=== PATIENT | male | born 1960 | race Caucasian/White ===

== ENCOUNTER 2018-01-09 10:16 | Day surgery (SDC) | payer BC, OTHER ==
[~2018-01-09 10:16] MED LIST: LIDOCAINE 1% MDV 20ML VIAL As Ordered; LIDOCAINE 2% INJ 100 MG/5 ML SDV (FOR ANES.) As Ordered; PROPOFOL 200 MG/20 ML VIAL As Ordered
[2018-01-09] MEDS ORDERED: NS 1,000 ML IV (11:00)
== END 2018-01-09 12:28 | disposition home or self-care (01) ==
LOC: M OPP 10:16
DX: Z12.11 Encounter for screening for malignant neoplasm of colon (principal); K64.8 Other hemorrhoids; Z80.0 Family history of malignant neoplasm of digestive organs; Z88.8 Allergy status to other drugs, medicaments and biological substances
CPT/HCPCS: 45378

== ENCOUNTER → 2020-01-17 | Outpatient (CLI) | payer BC, OTHER ==
--- NOTE | 2020-01-17 08:28 | REP ---
Abdominal aortic sonography: History: Pulsatile abdominal aorta on physical exam in the inferior epigastrium . Findings: Scanning through the retroperitoneum demonstrates that the abdominal aorta is normal in caliber at the level of the diaphragmatic hiatus measuring 2.8 x 2.9 cm in AP by transverse dimension respectively. The measurements of the aorta at the level of the renal artery origins is 2.6 x 2.1 cm in AP by transverse dimension diameter respectively. The distal aorta tapers to 1.7 x 1.8 cm AP by transverse dimension. The right and left common iliac arteries are normal measuring 1.0 cm in AP dimension bilaterally . No aneurysm is seen. No periaortic disease is observed. Impression: Negative abdominal aortic sonography. Electronically Signed by Dion Scherer MD 01/17/2020 08:20 A
== END ==
LOC: M RAD 06:25
PROVIDERS: ATTEND Family Medicine
DX: R19.00 Intra-abdominal and pelvic swelling, mass and lump, unspecified site (principal)

== ENCOUNTER → 2020-02-01 | Outpatient (CLI) | payer BC, OTHER ==
[2020-02-01 07:19] LABS: HEMOGLOBIN 13.9 g/dl (13.5-17.5); MEAN CORPUSCULAR HEMOGLOBIN 29.4 pg (27.0-33.0); MEAN CORPUSCULAR HGB CONC 33.1 g/dl (32.0-36.5); PLATELET COUNT, AUTOMATED 208 10^3/uL (150-450); RED BLOOD COUNT 4.72 10^6/uL (4.30-6.10); WHITE BLOOD COUNT 6.5 10^3/uL (4.0-10.0)
[2020-02-01 07:54] LABS: ALBUMIN 3.6 GM/DL (3.2-5.2); ALT/SGPT 28 U/L (12-78); BILIRUBIN,TOTAL 0.4 MG/DL (0.2-1.0); BLOOD UREA NITROGEN 21 MG/DL (7-18); CALCIUM LEVEL 8.9 MG/DL (8.5-10.1); CARBON DIOXIDE LEVEL 29 MEQ/L (21-32); CHLORIDE LEVEL 110 MEQ/L (98-107); CHOLESTEROL LEVEL 273 MG/DL (<200); CREATININE FOR GFR 1.01 MG/DL (0.70-1.30); GLOMERULAR FILTRATION RATE > 60.0 (>56); GLUCOSE, FASTING 105 MG/DL (70-100); HDL CHOLESTEROL 39 MG/DL (>40); LDL CHOLESTEROL 215 MG/DL (<100); NON-HDL-C 234 MG/DL; POTASSIUM SERUM 4.2 MEQ/L (3.5-5.1); PROSTATIC SPECIFIC AG MONITOR 0.66 NG/ML (< 4.00); SODIUM LEVEL 144 MEQ/L (136-145); TOTAL PROTEIN 6.7 GM/DL (6.4-8.2); TRIGLYCERIDES LEVEL 95 MG/DL (<150)
[2020-02-01 09:52] LABS: TESTOSTERONE 324 NG/DL (241-827)
== END ==
LOC: M LAB 06:41
PROVIDERS: ATTEND Family Medicine
DX: R53.83 Other fatigue (principal); F52.21 Male erectile disorder

== ENCOUNTER → 2020-04-18 | Outpatient (CLI) | payer BC, OTHER ==
[2020-04-18 07:04] LABS: ALBUMIN 3.4 GM/DL (3.2-5.2); BILIRUBIN,DIRECT 0.2 MG/DL (0.0-0.2); BILIRUBIN,TOTAL 0.5 MG/DL (0.2-1.0); CHOLESTEROL RISK RATIO 4.933 (<5)
== END ==
LOC: M LAB 06:05
PROVIDERS: ATTEND Family Medicine
DX: E78.2 Mixed hyperlipidemia (principal)